=== PATIENT | female | born 1960 | race Hispanic/Latino ===

== ENCOUNTER 2018-04-18 17:24 | Emergency (ER) | payer MEDICARE ==
[~2018-04-18] VITALS: Ht 157.5 cm; Wt 72.6 kg
--- OUTSIDE RECORDS SUMMARY | 2018-04-18 17:28 | XMS REPORT ---
Author [facility] Address Unknown Phone Unavailable Care Team Providers Care Compress Engineer Name Role Phone Unavailable Unavailable Problems This patient has no known problems. Allergies, Adverse Reactions, Alerts This patient has no known allergies or adverse reactions. Medications This patient has no known medications. Encounters Start Date/Time End Date/Time Encounter Type Admission Type Attending [facility] Care Department Encounter ID 2017-08-23 00:00:00 2017-08-23 00:00:00 Outpatient [facility] [id number] 2017-08-12 00:00:00 2017-08-12 00:00:00 Outpatient [facility] [id number] 2017-08-12 00:00:00 2017-08-12 00:00:00 Outpatient [facility] [id number] 2017-08-12 00:00:00 2017-08-12 00:00:00 Outpatient [facility] [id number] 2017-07-26 00:00:00 2017-07-26 00:00:00 Outpatient [facility] [id number] 2017-07-26 00:00:00 2017-07-26 00:00:00 Outpatient [facility] [id number] 2017-07-15 00:00:00 2017-07-15 00:00:00 Outpatient [facility] [id number] 2017-07-15 00:00:00 2017-07-15 00:00:00 Outpatient [facility] [id number] 2017-07-09 00:00:00 2017-07-09 00:00:00 Outpatient [facility] [id number] 2017-07-08 13:09:15 2017-07-08 13:09:15 Outpatient [facility] [id number] 2017-06-18 11:49:45 2017-06-18 11:49:45 Outpatient [facility] [id number] 2017-06-18 11:44:27 2017-06-18 11:44:27 Outpatient [facility] [id number] 2017-06-18 10:35:25 2017-06-18 10:35:25 Outpatient [facility] [id number] 2017-06-18 09:52:21 2017-06-18 09:52:21 Outpatient [facility] [id number] 2017-05-31 00:00:00 2017-05-31 00:00:00 Outpatient [facility] [id number]
[2018-04-18] MEDS ORDERED: ASPIRIN 81 MG CHEW TAB PO ONE (18:00)
--- NOTE | 2018-04-18 19:42 | Diagnostic Imaging Report ---
Examination: Single AP view of the chest. COMPARISON: None. INDICATION: Chest pain DISCUSSION: Lines/tubes: None. Lungs: The lungs are well inflated and clear. No pneumonia or pulmonary edema. Pleura: There is no pleural effusion or pneumothorax. Heart and mediastinum: The heart and the mediastinum are unremarkable. Bones and soft tissues: No acute bony abnormalities. IMPRESSION: 1. No acute cardiopulmonary abnormalities. Signed by: Dr. Mariusz Lyman M.D. on 04/18/2018 7:38 PM
[2018-04-18 21:41] VITALS: BP 143/90
[2018-04-18 21:50] LABS: EOSINOPHILS % 0.1 % (0.0-6.0); HEMOGLOBIN 13.3 g/dL (12.0-16.0); LYMPHOCYTES % 0.8 % (18.0-39.1); MEAN CORPUSCULAR HGB CONC 34.1 g/dL (31-35); MEAN CORPUSCULAR VOLUME 93.8 fL (81-99); MONOCYTES % 0.2 % (4.4-11.3); PLATELET COUNT 300 x10e3/uL (140-360); RED BLOOD COUNT 4.16 x10e6/uL (3.6-5.1); RED CELL DISTRIBUTION WIDTH 11.9 % (11.7-14.4)
[2018-04-18 21:51] LABS: PARTIAL THROMBOPLASTIN TIME 32.7 seconds (23.8-35.5); PROTHROMBIN TIME 12.4 seconds (11.9-14.5)
[2018-04-18 21:52] LABS: ANION GAP 13.4 mmol/L (8-16); BILIRUBIN,URINE NEGATIVE (NEGATIVE); CLARITY,URINE CLEAR (CLEAR); COLOR,URINE YELLOW (YELLOW); KETONES,URINE NEGATIVE (NEGATIVE); LEUKOCYTE ESTERASE ,URINE NEGATIVE (NEGATIVE); NITRITE,URINE NEGATIVE (NEGATIVE); POTASSIUM 3.4 mmol/L (3.5-5.1); PROTEIN,URINE DIPSTICK NEGATIVE (NEGATIVE); URINE UROBILINOGEN 0.2 mg/dL (0.2 - 1)
[2018-04-18 21:53] LABS: ALBUMIN 4.1 g/dL (3.5-5.0); CALCIUM 9.8 mg/dL (8.4-10.2); CREATINE KINASE MB 1.9 ng/mL (0-5.0); CREATININE, SERUM 1.05 mg/dL (0.57-1.11)
== END 2018-04-18 21:46 | disposition home or self-care (01) ==
LOC: ER 17:24
DX: E11.65 Type 2 diabetes mellitus with hyperglycemia (principal); I10 Essential (primary) hypertension; E03.9 Hypothyroidism, unspecified
CPT/HCPCS: 36415; 71045; 80053; 81001; 82550; 82553; 82948; 84484; 85025; 85610; 85730; 93005; 99283

== ENCOUNTER → 2021-09-17 | Outpatient (CLI) | payer MEDICARE | LOC: RAD 09:52 | PROVIDERS: ATTEND Internal Medicine | DX: R06.02 Shortness of breath (principal) | CPT/HCPCS: 71046 ==

== ENCOUNTER 2022-05-21 08:24 | Inpatient (IN) | payer MEDICARE ==
[~2022-05-21] VITALS: Ht 157.5 cm; Wt 72.7 kg
[2022-05-21] MEDS ORDERED: HYDRALAZINE HCL 20 MG/ML VIAL IV STA (08:32)
[2022-05-21 08:45] LABS: BASOPHILS % 0.2 % (0.0-1.0); EOSINOPHILS # (AUTO) 0.2 (0.0-0.4); EOSINOPHILS % 2.4 % (0.0-6.0); HEMATOCRIT 39.3 % (34.2-44.1); HEMOGLOBIN 12.3 g/dL (12.0-16.0); LYMPHOCYTES # (AUTO) 1.7 (1.0-3.2); LYMPHOCYTES % 20.2 % (18.0-39.1); MEAN CORPUSCULAR HEMOGLOBIN 30.9 pg (28-32); MEAN CORPUSCULAR HGB CONC 31.3 g/dL (31-35); MEAN CORPUSCULAR VOLUME 98.7 fL (81-99); MONOCYTES # (AUTO) 0.4 (0.2-0.8); MONOCYTES % 5.1 % (4.4-11.3); NEUTROPHILS % 71.9 % (38.7-80.0); PLATELET COUNT 304 x10e3/uL (140-360); RED BLOOD COUNT 3.98 x10e6/uL (3.6-5.1); RED CELL DISTRIBUTION WIDTH 12.6 % (11.7-14.4)
[2022-05-21] MEDS ORDERED: SODIUM CHLORIDE FLUSH 10 ML SYR IV PRN (08:45)
[2022-05-21 09:08] LABS: ALANINE AMINOTRANSFERASE 26 IU/L (0-55); ALBUMIN/GLOBULIN RATIO 0.7 (0.8-2.0); ALKALINE PHOSPHATASE 76 IU/L (40-150); ANION GAP 12.6 mmol/L (8-16); BLOOD UREA NITROGEN 23 mg/dL (7-26); BUN/CREATININE RATIO 26 (6-25); CALCIUM 8.9 mg/dL (8.4-10.2); CARBON DIOXIDE 24 mmol/L (22-29); CHLORIDE 110 mmol/L (98-107); POTASSIUM 3.6 mmol/L (3.5-5.1); SODIUM 143 mmol/L (136-145)
[2022-05-21 09:11] LABS: GLUCOSE 45 mg/dL (74-118)
[2022-05-21 10:06] LABS: CLARITY,URINE TURBID (CLEAR); COLOR,URINE YELLOW (YELLOW); KETONES,URINE NEGATIVE (NEGATIVE); LEUKOCYTE ESTERASE ,URINE TRACE (NEGATIVE); NITRITE,URINE NEGATIVE (NEGATIVE); PROTEIN,URINE DIPSTICK >=300 (NEGATIVE); URINE UROBILINOGEN 0.2 mg/dL (0.2 - 1)
[2022-05-21 10:38] LABS: BACTERIA,URINE FEW /HPF; EPITHELIAL CELLS,URINE MODERATE /LPF; RBC,URINE 0-5 /HPF (0-5); WBC,URINE (MAN) 0-5 /HPF (0-5)
[2022-05-21] MEDS ORDERED: DEXTROSE 50% SYRINGE 50 ML IV PRN ×2 (13:00→20:00)
[2022-05-21 14:19] VITALS: BP 183/82
[2022-05-21] MEDS ORDERED: HYDRALAZINE HCL 20 MG/ML VIAL IV PRN (15:00)
[2022-05-21] MEDS: ACETAMINOPHEN 325 MG TAB PO PRN ×2 (15:04→22:03)
[2022-05-21 15:23] VITALS: BP 183/87
[2022-05-21 16:03] VITALS: BP 159/76
[2022-05-21 16:04] VITALS: BP 183/87
[2022-05-21] MEDS ORDERED: LOSARTAN POTAS100 MG PO (17:55)
[2022-05-21] MEDS ORDERED: METOPROLOL TAR100 MG PO ×2 (17:56)
[2022-05-21] MEDS: NIFEDIPINE CR 30 MG TAB PO SCH ×2 (19:45→21:50)
[2022-05-21 20:00] VITALS: BP 141/82
[2022-05-21] MEDS: INSULIN GLARGINE 100 UNITS/ML VIAL SQ SCH (21:00)
[2022-05-21] MEDS: INSULIN LISPRO 100 UNIT/1 ML 3ML VIAL SQ SCH (21:00)
[2022-05-21] MEDS: METOPROLOL TARTRATE 50 MG TAB PO SCH (21:51)
[2022-05-22] VITALS (8 sets, daily range): BP systolic 131–160; BP diastolic 66–79
[2022-05-22 05:55] LABS: BASOPHILS % 0.6 % (0.0-1.0); EOSINOPHILS # (AUTO) 0.3 (0.0-0.4); HEMATOCRIT 35.6 % (34.2-44.1); HEMOGLOBIN 11.3 g/dL (12.0-16.0); LYMPHOCYTES # (AUTO) 1.4 (1.0-3.2); LYMPHOCYTES % 29.2 % (18.0-39.1); MEAN CORPUSCULAR HEMOGLOBIN 30.5 pg (28-32); MEAN CORPUSCULAR HGB CONC 31.7 g/dL (31-35); MEAN CORPUSCULAR VOLUME 96.2 fL (81-99); MONOCYTES # (AUTO) 0.5 (0.2-0.8); MONOCYTES % 10.5 % (4.4-11.3); NEUTROPHILS # (AUTO) 2.6 (2.1-6.9); NEUTROPHILS % 53.5 % (38.7-80.0); PLATELET COUNT 303 x10e3/uL (140-360); RED CELL DISTRIBUTION WIDTH 12.3 % (11.7-14.4)
[2022-05-22 06:23] LABS: ANION GAP 11.8 mmol/L (8-16); CALCIUM 8.4 mg/dL (8.4-10.2); CREATININE, SERUM 1.02 mg/dL (0.57-1.11); POTASSIUM 3.8 mmol/L (3.5-5.1)
[2022-05-22] MEDS ORDERED: INSULIN REGULAR, HUMAN 100 UNIT/1 ML SQ SCH (07:30)
[2022-05-22] MEDS: INSULIN LISPRO 100 UNIT/1 ML 3ML VIAL SQ SCH ×4 (07:30→20:53)
[2022-05-22] MEDS: INSULIN GLARGINE 100 UNITS/ML VIAL SQ SCH ×2 (09:00→20:53)
[2022-05-22] MEDS: NIFEDIPINE CR 30 MG TAB PO SCH ×2 (09:00→09:52)
[2022-05-22] MEDS: METOPROLOL TARTRATE 50 MG TAB PO SCH ×2 (09:51→20:52)
[2022-05-22] MEDS: LOSARTAN POTASSIUM 100 MG TAB PO SCH (09:51)
[2022-05-22] MEDS: ACETAMINOPHEN 325 MG TAB PO PRN (09:59)
[2022-05-22] MEDS: METFORMIN HCL 500 MG TAB PO SCH ×2 (14:07→16:42)
[2022-05-22 16:06] LABS: FREE T4 (FREE THYROXINE) 0.6 ng/dL (0.8-1.8); THYROID STIMULATING HORMONE 22.611 uIU/mL (0.350-4.940)
[2022-05-23] VITALS (8 sets, daily range): BP systolic 140–174; BP diastolic 58–80
[2022-05-23] MEDS ORDERED: LEVOTHYROXINE SODIUM 75 MCG TAB PO SCH (06:00)
[2022-05-23] MEDS ORDERED: LEVOTHYROXINE SODIUM 50 MCG TAB PO SCH (06:00)
[2022-05-23 06:34] LABS: BASOPHILS % 0.4 % (0.0-1.0); EOSINOPHILS # (AUTO) 0.3 (0.0-0.4); EOSINOPHILS % 6.4 % (0.0-6.0); HEMATOCRIT 35.1 % (34.2-44.1); HEMOGLOBIN 11.1 g/dL (12.0-16.0); LYMPHOCYTES # (AUTO) 1.3 (1.0-3.2); MEAN CORPUSCULAR HEMOGLOBIN 30.7 pg (28-32); MEAN CORPUSCULAR HGB CONC 31.6 g/dL (31-35); MEAN CORPUSCULAR VOLUME 97.2 fL (81-99); MONOCYTES # (AUTO) 0.6 (0.2-0.8); MONOCYTES % 11.4 % (4.4-11.3); NEUTROPHILS # (AUTO) 2.9 (2.1-6.9); NEUTROPHILS % 56.6 % (38.7-80.0); PLATELET COUNT 315 x10e3/uL (140-360); RED BLOOD COUNT 3.61 x10e6/uL (3.6-5.1); RED CELL DISTRIBUTION WIDTH 12.3 % (11.7-14.4)
[2022-05-23 07:07] LABS: ALBUMIN 2.7 g/dL (3.5-5.0); ALBUMIN/GLOBULIN RATIO 0.8 (0.8-2.0); ANION GAP 11.1 mmol/L (8-16); CALCIUM 8.3 mg/dL (8.4-10.2); CREATININE, SERUM 1.03 mg/dL (0.57-1.11); MAGNESIUM 2.1 MG/DL (1.3-2.1); POTASSIUM 4.1 mmol/L (3.5-5.1)
[2022-05-23] MEDS: INSULIN LISPRO 100 UNIT/1 ML 3ML VIAL SQ SCH ×7 (07:30→21:00)
[2022-05-23] MEDS: METFORMIN HCL 500 MG TAB PO SCH ×2 (09:00→16:29)
[2022-05-23] MEDS: METOPROLOL TARTRATE 50 MG TAB PO SCH ×2 (09:00→22:58)
[2022-05-23] MEDS: NIFEDIPINE CR 30 MG TAB PO SCH (09:01)
[2022-05-23] MEDS: LOSARTAN POTASSIUM 100 MG TAB PO SCH (09:02)
[2022-05-23] MEDS: INSULIN GLARGINE 100 UNITS/ML VIAL SQ SCH ×2 (09:05→21:00)
[2022-05-24] VITALS: BP 150/69
[2022-05-24 04:00] VITALS: BP 143/64
[2022-05-24] MEDS ORDERED: LEVOTHYROXINE SODIUM 88 MCG TAB PO SCH (06:00)
[2022-05-24] MEDS: ACETAMINOPHEN 325 MG TAB PO PRN (06:35)
[2022-05-24] MEDS: INSULIN LISPRO 100 UNIT/1 ML 3ML VIAL SQ SCH ×4 (07:30→11:30)
[2022-05-24 07:55] VITALS: BP 143/64
[2022-05-24 08:26] VITALS: BP 150/80
[2022-05-24] MEDS: METFORMIN HCL 500 MG TAB PO SCH (08:45)
[2022-05-24] MEDS: METOPROLOL TARTRATE 50 MG TAB PO SCH (08:46)
[2022-05-24] MEDS: LOSARTAN POTASSIUM 100 MG TAB PO SCH (08:47)
[2022-05-24] MEDS: NIFEDIPINE CR 30 MG TAB PO SCH (08:47)
[2022-05-24] MEDS: INSULIN GLARGINE 100 UNITS/ML VIAL SQ SCH (08:49)
[2022-05-24 12:04] VITALS: BP 162/68
[2022-05-24] MEDS ORDERED: PROCARDIA XL30 MG PO (12:45)
[2022-05-24] MEDS ORDERED: NOVOLOG100 UNIT/1 SC (12:47)
[2022-05-24] MEDS ORDERED: METFORMIN HCL500 MG PO (12:47)
[2022-05-24] MEDS ORDERED: LANTUS 3ML100 UNITS/ SQ (12:47)
[2022-05-24] MEDS ORDERED: LEVOTHYROXINE88 MCG PO (12:48)
== END 2022-05-24 13:09 | disposition home or self-care (01) | DRG 639 ==
LOC: ER 08:28 → ERHOLD 12:54 → MED/SURG2 14:03 → OBSVTOIN 05-23 15:36
PROVIDERS: ADMIT Internal Medicine; ATTEND Internal Medicine
DX: E11.649 Type 2 diabetes mellitus with hypoglycemia without coma (principal); Z79.4 Long term (current) use of insulin; E66.9 Obesity, unspecified; Z68.29 Body mass index [BMI] 29.0-29.9, adult
CPT/HCPCS: 36415; 70450; 71045; 80048; 80053; 81001; 82948; 83036; 83735; 84439; 84443; 84484; 85025; 93005; 94760; 96372; 99284; G0378; J0360; J1815

== ENCOUNTER 2023-03-22 05:54 | Inpatient (IN) | payer MEDICARE ==
[~2023-03-22] VITALS: Ht 157.5 cm; Wt 74.8 kg
[~2023-03-22 05:54] MED LIST: LANTUS 3ML100 UNITS/ SQ; LEVOTHYROXINE88 MCG PO; LOSARTAN POTAS100 MG PO; METFORMIN HCL500 MG PO; METOPROLOL TAR100 MG PO; NOVOLOG100 UNIT/1 SC; PROCARDIA XL30 MG PO
[2023-03-22] MEDS ORDERED: LABETALOL HCL 5 MG/ML 20ML VIAL IV STA (06:00)
[2023-03-22] MEDS ORDERED: CLONIDINE HCL 0.1 MG TAB ONE (06:09)
[2023-03-22] MEDS ORDERED: ONDANSETRON HCL INJ 2MG/ML 2ML 2 MG/ML VIAL ONE (06:09)
[2023-03-22] MEDS ORDERED: ONDANSETRON HCL INJ 2MG/ML 2ML 2 MG/ML VIAL IV STA ×2 (06:11→10:40)
[2023-03-22] MEDS ORDERED: CLONIDINE HCL 0.1 MG TAB PO ONE (06:15)
[2023-03-22 06:42] LABS: BASOPHILS % 0.4 % (0.0-1.0); EOSINOPHILS # (AUTO) 0.3 (0.0-0.4); HEMATOCRIT 34.6 % (34.2-44.1); HEMOGLOBIN 11.3 g/dL (12.0-16.0); LYMPHOCYTES # (AUTO) 1.2 (1.0-3.2); LYMPHOCYTES % 23.2 % (18.0-39.1); MEAN CORPUSCULAR HEMOGLOBIN 30.1 pg (28-32); MEAN CORPUSCULAR HGB CONC 32.7 g/dL (31-35); MEAN CORPUSCULAR VOLUME 92.3 fL (81-99); MONOCYTES # (AUTO) 0.4 (0.2-0.8); MONOCYTES % 8.2 % (4.4-11.3); NEUTROPHILS # (AUTO) 3.2 (2.1-6.9); NEUTROPHILS % 62.8 % (38.7-80.0); PLATELET COUNT 294 x10e3/uL (140-360); RED BLOOD COUNT 3.75 x10e6/uL (3.6-5.1); RED CELL DISTRIBUTION WIDTH 12.6 % (11.7-14.4)
[2023-03-22 06:54] LABS: ALANINE AMINOTRANSFERASE 11 IU/L (0-55); ALBUMIN 3.3 g/dL (3.5-5.0); ALBUMIN/GLOBULIN RATIO 0.8 (0.8-2.0); ALKALINE PHOSPHATASE 64 IU/L (40-150); BLOOD UREA NITROGEN 40 mg/dL (7-26); BUN/CREATININE RATIO 20 (6-25); CALCIUM 8.9 mg/dL (8.4-10.2); CARBON DIOXIDE 23 mmol/L (22-29); CHLORIDE 108 mmol/L (98-107); CREATINE KINASE 51 IU/L (29-168); CREATININE, SERUM 2.03 mg/dL (0.57-1.11); GLUCOSE 152 mg/dL (74-118); SODIUM 138 mmol/L (136-145)
[2023-03-22] MEDS ORDERED: ATORVASTATIN CA20 MG PO (07:55)
[2023-03-22] MEDS ORDERED: LOW DOSE ASPIRI81 MG PEG (07:55)
[2023-03-22] MEDS ORDERED: OLMESARTAN PO (07:55)
[2023-03-22] MEDS ORDERED: OZEMPIC0.25 MG/0. SQ (07:55)
[2023-03-22] MEDS ORDERED: MELOXICAM7.5 MG PO (07:55)
[2023-03-22] MEDS ORDERED: LEXAPRO20 MG PO (07:55)
[2023-03-22] MEDS ORDERED: ERGOCALCIFEROL1 GM PO (07:55)
[2023-03-22] MEDS ORDERED: HYDROCHLOROTHIAZIDE PO (07:55)
[2023-03-22 17:57] VITALS: BP 177/79
[2023-03-22 18:05] VITALS: BP 177/79
[2023-03-22] MEDS ORDERED: DEXTROSE 50% SYRINGE 50 ML IV PRN (18:15)
[2023-03-22 20:00] VITALS: BP 167/85
[2023-03-22] MEDS ORDERED: INSULIN LISPRO 100 UNIT/1 ML 3ML VIAL SQ SCH (21:00)
[2023-03-23] MEDS ORDERED: NIFEDIPINE CR 30 MG TAB PO SCH (01:15)
[2023-03-23] MEDS ORDERED: ACETAMINOPHEN 325 MG TAB PO PRN (01:15)
[2023-03-23] MEDS ORDERED: METOPROLOL TARTRATE 50 MG TAB PO SCH (01:30)
[2023-03-23 01:32] VITALS: BP 203/91
[2023-03-23 01:35] VITALS: BP 203/91
[2023-03-23 05:50] VITALS: BP 138/70
[2023-03-23 05:59] LABS: BASOPHILS % 0.5 % (0.0-1.0); EOSINOPHILS # (AUTO) 0.3 (0.0-0.4); EOSINOPHILS % 6.4 % (0.0-6.0); HEMATOCRIT 32.3 % (34.2-44.1); HEMOGLOBIN 10.8 g/dL (12.0-16.0); LYMPHOCYTES # (AUTO) 1.1 (1.0-3.2); LYMPHOCYTES % 26.9 % (18.0-39.1); MEAN CORPUSCULAR HEMOGLOBIN 30.1 pg (28-32); MEAN CORPUSCULAR HGB CONC 33.4 g/dL (31-35); MONOCYTES # (AUTO) 0.4 (0.2-0.8); MONOCYTES % 10.5 % (4.4-11.3); NEUTROPHILS # (AUTO) 2.3 (2.1-6.9); NEUTROPHILS % 55.5 % (38.7-80.0); PLATELET COUNT 255 x10e3/uL (140-360); RED BLOOD COUNT 3.59 x10e6/uL (3.6-5.1); RED CELL DISTRIBUTION WIDTH 12.4 % (11.7-14.4)
[2023-03-23 06:26] LABS: CALCIUM 8.8 mg/dL (8.4-10.2); CREATININE, SERUM 2.2 mg/dL (0.57-1.11)
== END 2023-03-23 07:22 | disposition left against medical advice (07) | DRG 305 ==
LOC: ER 06:11 → ERHOLD 07:23 → MED/SURG 17:25
PROVIDERS: ADMIT Internal Medicine; ATTEND Internal Medicine
DX: I16.1 Hypertensive emergency (principal); G43.909 Migraine, unspecified, not intractable, without status migrainosus; Z53.29 Procedure and treatment not carried out because of patient's decision for other reasons; Z20.822 Contact with and (suspected) exposure to COVID-19
CPT/HCPCS: 36415; 70450; 71045; 80048; 80053; 82550; 82553; 82948; 84484; 85025; 93005; 94799; 99284; J2405

== ENCOUNTER 2023-04-13 16:47 | Emergency (ER) | payer MEDICARE, OTHER ==
[~2023-04-13] VITALS: Ht 157.5 cm; Wt 74.8 kg
[~2023-04-13 16:47] MED LIST changes: +ATORVASTATIN CA20 MG PO; +ERGOCALCIFEROL1 GM PO; +HYDROCHLOROTHIAZIDE PO; +LEXAPRO20 MG PO; +LOW DOSE ASPIRI81 MG PEG; +MELOXICAM7.5 MG PO; +OLMESARTAN PO; +OZEMPIC0.25 MG/0. SQ
[2023-04-13 16:53] VITALS: O2SAT 100
== END 2023-04-13 18:03 | disposition home or self-care (01) ==
LOC: ER 17:04
DX: S93.492A Sprain of other ligament of left ankle, initial encounter (principal); W01.0XXA Fall on same level from slipping, tripping and stumbling without subsequent striking against object, initial encounter; Y93.01 Activity, walking, marching and hiking; Y92.89 Other specified places as the place of occurrence of the external cause; I10 Essential (primary) hypertension; E11.9 Type 2 diabetes mellitus without complications; E78.5 Hyperlipidemia, unspecified; E03.9 Hypothyroidism, unspecified
CPT/HCPCS: 99282